=== PATIENT | female | born 1975 | race Caucasian/White ===

== ENCOUNTER 2016-06-09 18:01 | Emergency (ER) | payer MEDICAID ==
[~2016-06-09] VITALS: Ht 152.4 cm; Wt 80.5 kg
[~2016-06-09 18:01] MED LIST: IBUP-1542 PO
[2016-06-09 18:27] VITALS: Ht 152.4 cm; Wt 80.5 kg
[2016-06-09] MEDS ORDERED: NAPROXEN 500 MG TAB PO STA (19:51)
--- NOTE | 2016-06-09 20:37 | RADRPT ---
PROCEDURE: XR Left Foot CLINICAL INDICATION: Contusion TECHNIQUE: AP, oblique, and lateral radiographs were submitted. COMPARISON: None FINDINGS: Osseous structures: appear well mineralized and intact with no fracture or destructive process iden tified. Joint spaces: are well maintained, with no significant spurring, erosion or joint effusion evident. Soft tissues: appear unremarkable. IMPRESSION: Unremarkable left foot. Physician Dylan Date Time Electronically viewed and signed by Physician Dylan on 06/09/2016 20:37 /
--- NOTE | 2016-06-09 20:37 | RADRPT ---
PROCEDURE: XR Left Wrist with Navicular View CLINICAL INDICATION: Contusion TECHNIQUE: AP, lateral, and oblique views as well as a carpal navicular view were submitted. COMPARISON: None FINDINGS: Osseous structures: appear well mineralized and intact with no fracture or destructive process iden tified. Joint spaces: are well maintained with no significant erosions or spurring identified. Soft tissues: appear unremarkable. IMPRESSION: Unremarkable left wrist with navicular view. Physician Dylan Date Time Electronically viewed and signed by Falguni De La Cruz Physician on 06/09/2016 20:36 RH/
--- NOTE | 2016-06-09 20:38 | RADRPT ---
PROCEDURE: XR Left Shoulder CLINICAL INDICATION: Contusion, fall TECHNIQUE: AP internal and external rotation views and a Y-view were submitted. COMPARISON: None FINDINGS: Osseous structures: appear well mineralized and intact with no fracture or destructive process iden tified. Joint spaces: The glenohumeral joint appears unremarkable. The AC joint appears normal. Soft tissues: appear unremarkable. IMPRESSION: Unremarkable left shoulder. Physician Dylan Date Time Electronically viewed and signed by Falguni De La Cruz Physician on 06/09/2016 20:38 /
[2016-06-09] MEDS ORDERED: NAPR-260 PO (20:45)
--- NOTE | 2016-06-09 20:53 | ERD ---
ER Documentation Chief Complaint Date/Time DATE: 06/09/16 TIME: 20:50 Chief Complaint ground level at 3 pm, c/o pain left wrist, left foot, left neck HPI This is a 40-year-old female presenting to the emergency department complaining of left dorsal wrist pain, left dorsal foot pain, left shoulder pain SP large machine falling onto her at work earlier today. Patient rates the pain moderate in severity. She states that she is able to ambulate, she admits to restricted range of motion due to pain. ROS All systems reviewed and are negative except as per history of present illness. Medications Home Meds Active Scripts Naproxen* (Naprosyn*) 500 Mg Tablet, 500 MG PO BID Y for PAIN AND/OR INFLAMMATION, #30 TAB Prov:BRIGIDO BAÑUELOS PA-C 06/09/16 Ibuprofen* (Motrin*) 600 Mg Tab, 600 MG PO Q6H Y for PAIN AND OR ELEVATED TEMP, #30 TAB Prov:MAILE NIELSON MD 03/14/16 Allergies Allergies: Coded Allergies: No Known Drug Allergy (Verified Allergy, Unknown, 06/09/16) PMhx/Soc History of Surgery: No Anesthesia Reaction: No Hx Neurological Disorder: No Hx Respiratory Disorders: No Hx Cardiac Disorders: Yes (CHEST PAIN.) Hx Psychiatric Problems: No Hx Miscellaneous Medical Probl: No Hx Alcohol Use: No Hx Substance Use: No Hx Tobacco Use: No Smoking Status: Never smoker Physical Exam Vitals Vital Signs Date Time Temp Pulse Resp B/P Pulse Ox O2 Delivery O2 Flow Rate FiO2 06/09/16 18:27 97.9 72 20 141/63 100 Physical Exam General: WD/WN, in no apparent distress, non-toxic appearing HENT: NC/AT Eyes: Conjunctiva normal Neck: Supple Pulm: Clear to auscultation, normal labored breathing; no wheezing/rales/ rhonchi heard CV: Good capillary refill GI: Non-distended, no guarding Back: No masses Ext: Tenderness to palpation over the left shoulder, tenderness to palpation over the left dorsal wrist, positive snuffbox tenderness, tender to palpation of the left dorsal foot, patient had full passive range of motion of all extremities. There was no swelling noted Neuro: Moves on all fours Skin: intact Psych: Normal mood Results 24 hrs Current Medications Medications (Trade) Dose Ordered Sig/Viridiana Route PRN Reason Start Time Stop Time Status Last Admin Dose Admin Naproxen (Naprosyn) 500 mg ONCE STAT PO 06/09/16 19:51 06/09/16 19:55 DC 06/09/16 20:33 Procedures/MDM This is a 40-year-old female presenting to the emergency department complaining of left wrist pain, left dorsal foot pain, and left shoulder pain status post a large machine falling on top of her. This is likely due to a contusion and sprain. I have a low suspicion for fracture or dislocation however due to patient having some mild scaphoid snuffbox tenderness patient was placed in a thumb spica splint, I discussed with patient to follow-up with her orthopedist in the next couple days for further evaluation management. Patient was neurovascular intact pre-and post treatment. Patient was given naproxen in the ED and a prescription for outpatient. Patient has stable vital signs and neurovascular intact for discharge, precautions were given to return to the ED for any worsening symptoms. Patient understands and agrees with plan Departure Diagnosis: Primary Impression: Wrist injury Encounter type: initial encounter Laterality: left Qualified Code: S69.92XA - Wrist injury, left, initial encounter Additional Impression: Contusion Encounter type: initial encounter Contusion area: shoulder Laterality: left Qualified Code: S40.012A - Contusion of left shoulder, initial encounter Condition: Stable Patient Instructions: Contusion, Soft Tissue, Contusion, Hand, Contusion, Upper Extremity, Fracture, Navicular (Wrist), Suspected Referrals: [facility] () Usted se hooks hecho un examen mdico de control que le indica que no est en vandana condicin que requiera tratamiento urgente en el Departamento de Emergencia. Un estudio ms profundo y el tratamiento de rodriguez condicin pueden esperar sin ningn riesgo hasta que usted sea atendida/o en el consultorio de rodriguez mdico o vandana cl hesham. Es responsabilidad suya arreglar vandana joe para el seguimiento del latricia. MANEJO DE CONDICIONES NO URGENTES EN EL FUTURO 1) Si usted tiene un mdico de atencin primaria: Usted debera llamar a rodriguez mdico de atencin primaria antes de venir al departamento de emergencia. Despus de las horas de consultorio, rodriguez doctor o rodriguez asociado/a est disponible por telfono. El mdico o enfermero de jo-ann en el servicio telefnico puede asesorarle por roberto medio para atender el problema, o latricia contrario se puede programar vandana joe. 2) Si usted no tiene un mdico de atencin primaria: Llame al mdico o condado institucions de referencia que aparece abajo gene las horas de consultorio para hacer vandana joe para que le vean. SI USTED NO PUEDE PAGAR PARA LAVELLE UN MEDICO puede ir a: [facility] [address] [place] [address] [facility] [address] [place] [address] [facility] [address] [place] [address] [facility] [address] [place], [place] [phone] Additional Instructions: Visite a rodriguez mdico maana para un EXAMEN.Regrese a estas instalaciones si no se mejora valentnie esperbamos o valentine le dijimos. Specialist:Usted tiene vandana condicin mdica que requiere que brian a un especialista dentro de los prximos 1-2 schulz.POR FAVOR,CON RODRIGUEZ SEGUIMIENTO DE PRIMARIA PHSICIAN refferal. SI USTED NO TIENE UN MDICO GENERAL Y / O USTED NO PUEDE PAGAR lavelle a un mdico,los siguientes barlow RECURSOS sido suministrado a usted. ES RODRIGUEZ RESPONSABILIDAD PARA SER VISTOS POR EL ESPECIALISTA: Elkin toda la medicina alexandre y valentine se le indic. Regrese a estas instalaciones si no se mejora valentine esperbamos o valentine le dijimos. BRIGIDO BAÑUELOS PA-C Jun 09, 2016 20:53
== END 2016-06-09 21:18 | disposition home or self-care (01) ==
LOC: FTE 18:01
DX: S69.92XA Unspecified injury of left wrist, hand and finger(s), initial encounter (principal); S40.012A Contusion of left shoulder, initial encounter; W20.8XXA Other cause of strike by thrown, projected or falling object, initial encounter; Y92.9 Unspecified place or not applicable
CPT/HCPCS: 29125; 73030; 73110; 73630; Z7610

== ENCOUNTER 2016-10-14 09:25 | Emergency (ER) | payer MEDICAID ==
[~2016-10-14] VITALS: Wt 79.5 kg
[~2016-10-14 09:25] MED LIST changes: +NAPR-260 PO
[2016-10-14] MEDS ORDERED: ONDANSETRON (ODT) 4 MG TAB ODT STA (09:55)
[2016-10-14] MEDS ORDERED: LIDOCAINE/MYLANTA 40 ML BTL PO STA (10:07)
[2016-10-14] MEDS ORDERED: METOCLOPRAMIDE 10 MG INJ IV STA (10:07)
[2016-10-14] MEDS ORDERED: SOD CHLORIDE 0.9% 1,000 ML IV STA (10:07)
[2016-10-14] MEDS ORDERED: FAMOTIDINE 20 MG INJ IV STA (10:07)
[2016-10-14 10:30] LABS: ADD SCAN DIFF NO
[2016-10-14 10:33] LABS: BASOPHIL # 0.1 10^3/ul (0.0-0.1); BASOPHILS % 0.9 % (0.0-2.0); EOSINOPHILS # 0.2 10^3/ul (0.0-0.5); EOSINOPHILS % 1.7 % (0.0-7.0); HEMOGLOBIN 13.4 g/dl (12.0-16.0); LYMPHOCYTES # 3.6 10^3/ul (0.8-2.9); LYMPHOCYTES % 36.7 % (15.0-51.0); MEAN CORPUSCULAR HEMOGLOBIN 30.3 pg (29.0-33.0); MEAN CORPUSCULAR HGB CONC 34.4 g/dl (32.0-37.0); MEAN CORPUSCULAR VOLUME 88.2 fl (82.0-101.0); MONOCYTE # 0.5 10^3/ul (0.3-0.9); NEUTROPHIL # 5.4 10^3/ul (1.6-7.5); NEUTROPHILS % 55.5 % (39.0-77.0); PLATELET COUNT 311 10^3/UL (140-415); RED BLOOD COUNT 4.42 10^6/ul (4.20-5.40); RED CELL DISTRIBUTION WIDTH 12.5 % (11.5-14.5); WHITE BLOOD COUNT 9.7 10^3/ul (4.8-10.8)
[2016-10-14 10:51] LABS: ANION GAP 14 (8-16)
[2016-10-14 10:59] LABS: ADD UMIC NO; URINE BILIRUBIN (Dip) NEGATIVE (NEGATIVE); URINE BLOOD (Dip) NEGATIVE (NEGATIVE); URINE COLOR LT. YELLOW (YELLOW); URINE GLUCOSE (Dip) NEGATIVE (NEGATIVE); URINE KETONES (Dip) NEGATIVE (NEGATIVE); URINE LEUKOCYTE ESTERASE (Dip) NEGATIVE (NEGATIVE); URINE NITRITE (Dip) NEGATIVE (NEGATIVE); URINE TOTAL PROTEIN (Dip) NEGATIVE (NEGATIVE); URINE UROBILINOGEN (Dip) 0.2 E.U./dL (0.1-1.0)
[2016-10-14 10:59] LABS: ALANINE AMINOTRANSFERASE 43 IU/L (13-69); ALBUMIN/GLOBULIN RATIO 1.21; ALKALINE PHOSPHATASE 117 IU/L (42-121); ASPARTATE AMINO TRANSFERASE 24 IU/L (15-46); BILIRUBIN,INDIRECT 0.3 mg/dl (0-1.1); BILIRUBIN,TOTAL 0.3 mg/dl (0.2-1.3); BLOOD UREA NITROGEN 13 mg/dl (7-20); CALCIUM 9.2 mg/dl (8.4-10.2); CARBON DIOXIDE 26 mmol/L (21-31); CHLORIDE 102 mmol/L (97-110); CREATININE 0.52 mg/dl (0.44-1.00); GLUCOSE 169 mg/dl (70-220); TOTAL PROTEIN 7.3 g/dl (6.1-8.1)
[2016-10-14 11:00] LABS: POTASSIUM 3.5 mmol/L (3.5-5.1); SODIUM 138 mmol/L (135-144)
--- NOTE | 2016-10-14 11:03 | RADRPT ---
PROCEDURE: Chest Radiograph. CLINICAL INDICATION: Abdominal pain TECHNIQUE: Single frontal chest radiograph. COMPARISON: Chest radiograph 03/14/2016 FINDINGS: The patient is rotated. Heart size is poorly evaluated. The cardiomediastinal silhouette is grossl y within normal limits. No infiltrate or effusion is seen. The bones are intact. IMPRESSION: 1. No evidence of acute cardiopulmonary disease. RPTAT: AA .Semaj Valencia MD, MD Date Time Electronically viewed and signed by .Semaj Valencia MD, on 10/14/2016 11:03 .B/
[2016-10-14 11:19] LABS: TROPONIN-I < 0.012 ng/ml (0.00-0.12)
[2016-10-14] MEDS ORDERED: FAMO-18 PO (11:55)
[2016-10-14] MEDS ORDERED: METO10TA92 PO (11:55)
--- NOTE | 2016-10-14 12:08 | ERD ---
ER Documentation Chief Complaint Date/Time DATE: 10/14/16 TIME: 11:59 Chief Complaint LEFT KNEE PAIN, ALSO REPORTS VOMITING HPI 41-year-old female with no significant past medical history presenting with epigastric pain for 3 days. She started having associated nausea and vomiting since yesterday. Her vomitus is nonbloody and nonbilious. Her pain is constant , aching, nonradiating, 9 out of 10, worse with eating. No history of melena or hematochezia. No dysuria. Denies fevers or chills. She states that she feels tingling all over her body and body aches. No focal weakness or numbness. No headache or vision disturbance. She does endorse taking Motrin daily for the past 3 months for left-sided knee pain. ROS All systems reviewed and are negative except as per history of present illness. Medications Home Meds Active Scripts Metoclopramide* (Reglan*) 10 Mg Tablet, 10 MG PO Q6 Y for NAUSEA AND/OR VOMITING , #10 TAB Prov:BHAVIN SALAZAR MD 10/14/16 Famotidine* (Pepcid*) 20 Mg Tablet, 20 MG PO BID for 14 Days, #30 TAB Prov:BHAVIN SALAZAR MD 10/14/16 Discontinued Scripts Naproxen* (Naprosyn*) 500 Mg Tablet, 500 MG PO BID Y for PAIN AND/OR INFLAMMATION, #30 TAB Prov:BRIGIDO BAÑUELOS PA-C 06/09/16 Ibuprofen* (Motrin*) 600 Mg Tab, 600 MG PO Q6H Y for PAIN AND OR ELEVATED TEMP, #30 TAB Prov:MAILE NIELSON MD 03/14/16 Allergies Allergies: Coded Allergies: No Known Drug Allergy (Verified Allergy, Unknown, 10/14/16) PMhx/Soc History of Surgery: Yes () Anesthesia Reaction: No Hx Neurological Disorder: No Hx Respiratory Disorders: No Hx Cardiac Disorders: No Hx Psychiatric Problems: No Hx Miscellaneous Medical Probl: Yes (migraine) Hx Alcohol Use: No Hx Substance Use: No Hx Tobacco Use: No Smoking Status: Never smoker FmHx Family History: No diabetes Physical Exam Vitals Vital Signs Date Time Temp Pulse Resp B/P Pulse Ox O2 Delivery O2 Flow Rate FiO2 10/14/16 09:27 97.0 81 17 136/76 98 Physical Exam Const: Well-appearing, no distress Head: Atraumatic Eyes: Normal Conjunctiva ENT: Normal External Ears, Nose and Mouth. Neck: Full range of motion. No meningismus. Resp: Clear to auscultation bilaterally Cardio: Regular rate and rhythm, no murmurs. 2+ distal pulses Abd: Soft, epigastric moderate tenderness to palpation, non distended. Negative Eduardo sign normal bowel sounds Skin: No petechiae or rashes Back: No midline or flank tenderness Ext: No cyanosis, or edema. Left knee without any effusion or erythema. Tender to palpation along the joint. Neur: Awake and alert, face is symmetric, cranial nerves intact, strength and sensations intact in all 4 extremities Psych: Normal Mood and Affect Result Diagram: 10/14/16 1020 10/14/16 1020 Results 24 hrs Laboratory Tests Test 10/14/16 10:18 10/14/16 10:20 10/14/16 10:45 Bedside Glucose 140mg/dL White Blood Count 9.710^3/ul Red Blood Count 4.4210^6/ul Hemoglobin 13.4g/dl Hematocrit 39.0% Mean Corpuscular Volume 88.2fl Mean Corpuscular Hemoglobin 30.3pg Mean Corpuscular Hemoglobin Concent 34.4g/dl Red Cell Distribution Width 12.5% Platelet Count 71793^3/UL Mean Platelet Volume 10.0fl Neutrophils % 55.5% Lymphocytes % 36.7% Monocytes % 5.0% Eosinophils % 1.7% Basophils % 0.9% Nucleated Red Blood Cells % 0.0/100WBC Neutrophils # 5.410^3/ul Lymphocytes # 3.610^3/ul Monocytes # 0.510^3/ul Eosinophils # 0.210^3/ul Basophils # 0.110^3/ul Nucleated Red Blood Cells # 0.010^3/ul Sodium Level 138mmol/L Potassium Level 3.5mmol/L Chloride Level 102mmol/L Carbon Dioxide Level 26mmol/L Anion Gap 14 Blood Urea Nitrogen 13mg/dl Creatinine 0.52mg/dl Glucose Level 169mg/dl Calcium Level 9.2mg/dl Total Bilirubin 0.3mg/dl Direct Bilirubin 0.00mg/dl Indirect Bilirubin 0.3mg/dl Aspartate Amino Transf (AST/SGOT) 24IU/L Alanine Aminotransferase (ALT/SGPT) 43IU/L Alkaline Phosphatase 117IU/L Troponin I < 0.012ng/ml Total Protein 7.3g/dl Albumin 4.0g/dl Globulin 3.30g/dl Albumin/Globulin Ratio 1.21 Lipase 105U/L Urine Color LT. YELLOW Urine Clarity CLEAR Urine pH 6.5 Urine Specific [place] 1.010 Urine Ketones NEGATIVE Urine Nitrite NEGATIVE Urine Bilirubin NEGATIVE Urine Urobilinogen 0.2 E.U./dL Urine Leukocyte Esterase NEGATIVE Urine Hemoglobin NEGATIVE Urine Glucose NEGATIVE% Urine Total Protein NEGATIVE Current Medications Medications (Trade) Dose Ordered Sig/Viridiana Route PRN Reason Start Time Stop Time Status Last Admin Dose Admin Ondansetron HCl 8 mg 8 mg ONCE STAT ODT 10/14/16 09:55 10/14/16 09:57 DC 10/14/16 09:58 Sodium Chloride (NS) 1,000 ml @ 1,000 mls/hr Q1H STAT IV 10/14/16 10:07 10/14/16 11:06 DC 10/14/16 10:13 Metoclopramide HCl (Reglan) 10 mg ONCE STAT IV 10/14/16 10:07 10/14/16 10:09 DC 10/14/16 10:13 Famotidine (Pepcid Iv) 20 mg ONCE STAT IV 10/14/16 10:07 10/14/16 10:09 DC 10/14/16 10:13 Miscellaneous Medication (Gi Cocktail (2)) 40 ml ONCE STAT PO 10/14/16 10:07 10/14/16 10:09 DC 10/14/16 10:13 Procedures/MDM EMERGENT LABS AND DIAGNOSTIC STUDIES: Lab Results above were reviewed and interpreted by me. CBC, CMP, lipase, troponin within normal limits. UA normal. negative. 12-lead EKG was interpreted by Anabelle Salazar MD: Normal Sinus Rhythm Normal axis Normal intervals No acute ST or T wave changes suggestive of acute ischemia or STEMI. Radiology Results as interpreted by Radiology below were reviewed by Ryan Salazar MD: Chest x-ray normal Initial Nursing notes reviewed. Previous Medical Records requested via the Electronic Health Record. EMERGENCY DEPARTMENT COURSE / MEDICAL DECISION MAKING: Patient is presenting with complaints of epigastric pain. Differential includes but is not limited to biliary colic, biliary obstruction, acute cholecystitis, pancreatitis, hepatitis, lower lobe pneumonia, gastritis, colitis , cardiac pathology, aortic dissection, ureterolithiasis, pyelonephritis. Labs were ordered to evaluate for above and were unremarkable. Chest Xray ordered to evaluate for pneumonia and was read as normal by radiology. I suspect the patient has gastritis secondary to NSAID use. I have a low suspicion for acute surgical abdomen or biliary etiology. Pepcid, fluids, Reglan and GI cocktail were given with significant improvement in her symptoms. EKG was nonischemic and troponin was negative. I have a low suspicion that this is due to a cardiac etiology. Patient was discharged with instructions to stop NSAID use and I gave her prescription for Pepcid. I asked her to follow-up with her primary care doctor regarding her left knee pain. I advised her to use Tylenol in the meantime. Currently there is no evidence of septic joint or acute fracture dislocation. Patient's blood pressure was elevated (>120/80) but appears stable without evidence of hypertensive emergency or urgency. The patient was counseled about the risks of hypertension and urged to pursue outpatient monitoring and therapy within a week with their primary care physician. Departure Diagnosis: Primary Impression: Epigastric abdominal pain Additional Impressions: Weakness Nausea and vomiting Vomiting type: unspecified Vomiting Intractability: non-intractable Qualified Code: R11.2 - Non-intractable vomiting with nausea, unspecified vomiting type Knee pain Laterality: left Chronicity: chronic Qualified Code: M25.562 - Chronic pain of left knee Condition: Stable Patient Instructions: Nausea and Vomiting-Adult, Epigastric Pain (Uncertain Cause) [facility] Usted se hooks hecho un examen mdico de control que le indica que no est en vandana condicin que requiera tratamiento urgente en el Departamento de Emergencia. Un estudio ms profundo y el tratamiento de villagomez condicin pueden esperar sin ningn riesgo hasta que usted sea atendida/o en el consultorio de villagomez mdico o vandana cl hesham. Es responsabilidad suya arreglar vandana joe para el seguimiento del latricia. MANEJO DE CONDICIONES NO URGENTES EN EL FUTURO 1) Si usted tiene un mdico de atencin primaria: Usted debera llamar a villagomez mdico de atencin primaria antes de venir al departamento de emergencia. Despus de las horas de consultorio, villagomez doctor o villagomez asociado/a est disponible por telfono. El mdico o enfermero de jo-ann en el servicio telefnico puede asesorarle por roberto medio para atender el problema, o latricia contrario se puede programar vandana joe. 2) Si usted no tiene un mdico de atencin primaria: Llame al mdico o clnica de referencia que aparece abajo gene las horas de consultorio para hacer vandana joe para que le vean. CLINICAS: [facility] [phone] [address] [facility] [phone] [address] [facility]. [facility] [phone] [address] [facility]. [facility] [phone] [address] [facility]. [place] [id number] [phone] [facility]. [phone] [address] Additional Instructions: Nela vandana joe con villagomez mdico en los prximos 2 schulz. Deje de lisette Motrin para el dolor porque causa gastritis. Utilice Tylenol en villagomez lugar. Volver a la torri de emergencias para cualquier empeoramiento de los sntomas. EKMEKJIAN,NELLIE R. MD October 14, 2016 12:08
[2016-10-14 12:12] VITALS: RESP 18
== END 2016-10-14 12:12 | disposition home or self-care (01) ==
LOC: E/R 09:25
DX: R10.13 Epigastric pain (principal); R53.1 Weakness; R11.2 Nausea with vomiting, unspecified
CPT/HCPCS: 71010; 80053; 81003; 82962; 83690; 84484; 85025; 93005; J2765; J7030; Z7610; 36415; 96374; 96375

== ENCOUNTER 2017-05-22 14:21 | Inpatient (IN) | END 2017-05-26 12:30 | disposition home or self-care (01) | DRG 440 ==

== ENCOUNTER 2017-07-20 16:17 | Emergency (ER) | END 2017-07-20 17:40 | disposition home or self-care (01) ==

== ENCOUNTER 2017-10-13 16:31 | Emergency (ER) | END 2017-10-13 23:36 | disposition home or self-care (01) ==

== ENCOUNTER 2017-12-18 16:11 | Emergency (ER) | END 2017-12-18 20:49 | disposition home or self-care (01) ==

== ENCOUNTER 2018-02-14 00:56 | Emergency (ER) | END 2018-02-14 03:32 | disposition home or self-care (01) ==

== ENCOUNTER 2018-03-13 09:48 | Emergency (ER) | END 2018-03-13 14:11 | disposition home or self-care (01) ==

== ENCOUNTER 2018-08-08 12:03 | Emergency (ER) | payer OTHER, MEDICAID ==
[~2018-08-08] VITALS: Ht 144.8 cm; Wt 73.0 kg
[~2018-08-08 12:03] MED LIST changes: +CIPR500T4 PO; +CYCL10TA7 PO; +FIORICET PO; +FLUC150T PO; +HYDR-3980 PO; +HYDR-4011 PO; +IBUP-1544 PO; +LANT3I SC; +METF-849 PO; +METR500T PO; -NAPR-260 PO; +NOVO3I SC; +ONDA4TAB14 PO
[2018-08-08 12:51] VITALS: BP 152/65; PULSE 76; RESP 20; Ht 144.8 cm; Wt 73.0 kg
[2018-08-08] MEDS ORDERED: KETOROLAC 30 MG INJ IM STA (13:42)
[2018-08-08] MEDS ORDERED: TRAM50TA2 PO (14:53)
[2018-08-08] MEDS ORDERED: NAPR-985 PO (14:53)
--- NOTE | 2018-08-08 20:37 | ERD ---
ER Documentation Chief Complaint Chief Complaint RIGHT CLAVICLE/SHOULDER PAIN, NO DEFORMITY, +SWELLING, - FALLS-TODAY HPI 43-year-old female with a medical history of diabetes with 3-hour complaint of right clavicle shoulder pain. She denies any falls or recent injury. Woke up this morning with sharp pain that extends from the right shoulder to elbow. Also with numbness from right shoulder to elbow but denies numbness to forearm or hand. Pain worse with movement of her right shoulder. She otherwise denies chest pain, shortness of breath dyspnea, nausea vomiting, abdominal pain, urinary symptoms. ROS All systems reviewed and are negative except as per history of present illness. Medications Home Meds Active Scripts Naproxen* (Naprosyn*) 500 Mg Tablet, 500 MG PO BID PRN for PAIN AND/OR INFLAMMATION, #30 TAB Prov:DARCIE MONROE PA-C 08/08/18 Tramadol HCl (Tramadol HCl) 50 Mg Tablet, 50 MG PO Q6 PRN for PAIN, #20 TAB Prov:DARCIE MONROE PA-C 08/08/18 Fluconazole* (Diflucan*) 150 Mg Tablet, 150 MG PO ONCE, #1 TAB Prov:DEB ORTIZC 03/13/18 Acetamin/Butalbital/Caffeine* (Fioricet*) [id number] Tab, 1 TAB PO Q6H PRN for PAIN, #20 TAB Prov:DEB ORTIZC 03/13/18 Metformin* (Glucophage*) 500 Mg Tab, 500 MG PO DAILY, #20 TAB Prov:DEB ORTIZC 03/13/18 Hydrocodone/Acetaminophen (Breeding 10-325 Tablet) 1 Each Tablet, 1 TAB PO Q6H PRN for PAIN, #20 TAB Prov:JAVIER INIGUEZ 02/14/18 Cyclobenzaprine Hcl* (Cyclobenzaprine Hcl*) 10 Mg Tablet, 10 MG PO TID, #15 TAB Prov:JAVIER INIGUEZ 02/14/18 Ibuprofen* (Motrin*) 600 Mg Tab, 600 MG PO Q6H PRN for PAIN AND OR ELEVATED TEMP, #30 TAB Prov:JAVIER INIGUEZ 02/14/18 Hydrocodone/Acetaminophen (Breeding 5-325 Tablet) 1 Each Tablet, 1 TAB PO Q6H PRN for PAIN, #7 TAB Prov:JAVIER HOLDEN PA-C 12/18/17 Ondansetron (Ondansetron Odt) 4 Mg Tab.rapdis, 4 MG PO Q6H PRN for NAUSEA AND/OR VOMITING, #10 TAB Prov:JAVIER HOLDEN PA-C 12/18/17 Ciprofloxacin Hcl* (Ciprofloxacin Hcl*) 500 Mg Tablet, 500 MG PO BID for 7 Days, #14 TAB Prov:BRANDO CHAU MD 10/13/17 Metronidazole* (Flagyl*) 500 Mg Tablet, 500 MG PO BID for 7 Days, TAB Prov:BRANDO CHAU MD 10/13/17 Ibuprofen* (Ibuprofen*) 800 Mg Tablet, 800 MG PO Q8, #20 TAB Prov:BRANDO CHAU MD 10/13/17 Insulin Glargine* (Lantus*) 100 Unit/Ml Soln, 20 UNIT SC DAILY@08 for 30 Days Prov:HOLGER WILCOX 05/25/17 Insulin Aspart* (Novolog Insulin Pen*) 100 Unit/Ml Soln, 7 UNIT SC WITH MEALS for 30 Days Prov:HOLGER WILCOX 05/25/17 Allergies Allergies: Coded Allergies: No Known Drug Allergy (Verified Allergy, Unknown, 10/13/17) PMhx/Soc History of Surgery: Yes (CESARIAN SECTION) Anesthesia Reaction: No Hx Neurological Disorder: No Hx Respiratory Disorders: No Hx Cardiac Disorders: No Hx Psychiatric Problems: No Hx Miscellaneous Medical Probl: Yes (DM) Hx Alcohol Use: No Hx Substance Use: No Hx Tobacco Use: No FmHx Family History: diabetes Physical Exam Vitals Vital Signs Date Temp Pulse Resp B/P (MAP) Pulse Ox O2 O2 Flow FiO2 Time Delivery Rate 08/08/18 97.7 76 20 152/65 100 12:51 (94) Physical Exam I have reviewed the triage vital signs. 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 No rashes Neuro: Alert, scrap hooker II-XII grossly intact. Sensation and motor function of extremities grossly intact. Psych: Appropriate mood and affect. Results 24 hrs Laboratory Tests Test 08/08/18 14:00 POC Beta HCG, Qualitative NEGATIVE Current Medications Medications Dose Sig/Viridiana Start Time Status Last (Trade) Ordered Route PRN Stop Time Admin Dose Reason Admin Ketorolac 30 mg ONCE STAT 08/08/18 DC 08/08/18 Tromethamine IM 13:42 14:16 (Toradol) 08/08/18 13:44 Procedures/MDM 43-year-old female with past medical history of diabetes presents with right shoulder and arm pain and numbness. Unfortunately, patient left without ob taining results of her imaging. Several attempts made to locate patient to no avail. ED course: Xray of R shoulder without acute findings. Departure Diagnosis: Primary Impression: Shoulder pain Condition: Stable Patient Instructions: Shoulder Pain (Uncertain Cause) Additional Instructions: Call your primary care doctor TOMORROW for an appointment during the next 2-3 days.See the doctor sooner or return here if your condition worsens before your appointment time. DARCIE MONROE PA-C Aug 08, 2018 20:37
== END 2018-08-08 16:37 | disposition left against medical advice (07) ==
LOC: FTE 12:03
DX: M25.511 Pain in right shoulder (principal); E11.9 Type 2 diabetes mellitus without complications; Z79.4 Long term (current) use of insulin
CPT/HCPCS: 73030; 81025; 93005; 96372; 99284; J1885

== ENCOUNTER 2018-08-30 09:37 | Emergency (ER) | payer OTHER, MEDICAID ==
[~2018-08-30] VITALS: Ht 165.1 cm; Wt 70.9 kg
[~2018-08-30 09:37] MED LIST changes: +NAPR-985 PO; +TRAM50TA2 PO
[2018-08-30 09:51] VITALS: BP 137/83; PULSE 70; RESP 20; Ht 165.1 cm; Wt 70.9 kg
[2018-08-30] MEDS ORDERED: IBUP-1542 PO (13:29)
--- NOTE | 2018-08-30 13:34 | ERD ---
ER Documentation Chief Complaint Chief Complaint Complains of pelvic pain x 3 days HPI 43-year-old female presents with sensation of lower abdominal bloating and pelvic discomfort. She denies any known . She denies vaginal discharge, bleeding, dysuria, fevers, vomiting. Last menstrual period 10 weeks ago. She has a history of IUD. ROS All systems reviewed and are negative except as per history of present illness. Medications Home Meds Active Scripts Ibuprofen* (Motrin*) 600 Mg Tab, 600 MG PO Q6, #15 TAB Prov:MANDO REN MD 08/30/18 Naproxen* (Naprosyn*) 500 Mg Tablet, 500 MG PO BID PRN for PAIN AND/OR INFLAMMATION, #30 TAB Prov:DARCIE MONROE PA-C 08/08/18 Tramadol HCl (Tramadol HCl) 50 Mg Tablet, 50 MG PO Q6 PRN for PAIN, #20 TAB Prov:DARCIE MONROE PA-C 08/08/18 Fluconazole* (Diflucan*) 150 Mg Tablet, 150 MG PO ONCE, #1 TAB Prov:DEB ORTIZ PA-C 03/13/18 Acetamin/Butalbital/Caffeine* (Fioricet*) [id number] Tab, 1 TAB PO Q6H PRN for PAIN, #20 TAB Prov:DEB ORTIZ PA-C 03/13/18 Metformin* (Glucophage*) 500 Mg Tab, 500 MG PO DAILY, #20 TAB Prov:DEB ORTIZC 03/13/18 Hydrocodone/Acetaminophen ([place] 10-325 Tablet) 1 Each Tablet, 1 TAB PO Q6H PRN for PAIN, #20 TAB Prov:JAVIER INIGUEZ 02/14/18 Cyclobenzaprine Hcl* (Cyclobenzaprine Hcl*) 10 Mg Tablet, 10 MG PO TID, #15 TAB Prov:JAVIER INIGUEZ. 02/14/18 Ibuprofen* (Motrin*) 600 Mg Tab, 600 MG PO Q6H PRN for PAIN AND OR ELEVATED TEMP, #30 TAB Prov:JAVIER INIGUEZ. 02/14/18 Hydrocodone/Acetaminophen ([place] 5-325 Tablet) 1 Each Tablet, 1 TAB PO Q6H PRN for PAIN, #7 TAB Prov:JAVIER HOLDEN PA-C 12/18/17 Ondansetron (Ondansetron Odt) 4 Mg Tab.rapdis, 4 MG PO Q6H PRN for NAUSEA AND/OR VOMITING, #10 TAB Prov:JAVIER HOLDEN PA-C 12/18/17 Ciprofloxacin Hcl* (Ciprofloxacin Hcl*) 500 Mg Tablet, 500 MG PO BID for 7 Days, #14 TAB Prov:BRANDO CHAU MD 10/13/17 Metronidazole* (Flagyl*) 500 Mg Tablet, 500 MG PO BID for 7 Days, TAB Prov:BRANDO CHAU MD 10/13/17 Ibuprofen* (Ibuprofen*) 800 Mg Tablet, 800 MG PO Q8, #20 TAB Prov:BRANDO CHAU MD 10/13/17 Insulin Glargine* (Lantus*) 100 Unit/Ml Soln, 20 UNIT SC DAILY@08 for 30 Days Prov:HOLGER WILCOX 05/25/17 Insulin Aspart* (Novolog Insulin Pen*) 100 Unit/Ml Soln, 7 UNIT SC WITH MEALS for 30 Days Prov:HOLGER WILCOX 05/25/17 Allergies Allergies: Coded Allergies: No Known Drug Allergy (Verified Allergy, Unknown, 10/13/17) PMhx/Soc History of Surgery: Yes (CESARIAN SECTION) Anesthesia Reaction: No Hx Neurological Disorder: No Hx Respiratory Disorders: No Hx Cardiac Disorders: No Hx Psychiatric Problems: No Hx Miscellaneous Medical Probl: Yes (DM) Hx Alcohol Use: No Hx Substance Use: No Hx Tobacco Use: No Smoking Status: Never smoker FmHx Family History: No diabetes, No coronary disease, No other Physical Exam Vitals Vital Signs Date Temp Pulse Resp B/P (MAP) Pulse Ox O2 O2 Flow FiO2 Time Delivery Rate 08/30/18 98.5 70 20 137/83 100 09:51 (101) Physical Exam Const: No acute distress Head: Atraumatic Eyes: Normal Conjunctiva ENT: Normal External Ears, Nose and Mouth. Neck: Full range of motion. No meningismus. Resp: Clear to auscultation bilaterally Cardio: Regular rate and rhythm, no murmurs Abd: Soft, minimal lower abdominal tenderness without masses. Nontender McBurney's point no Eduardo sign. Non distended. Normal bowel sounds. A mbulatory without peritoneal signs. Skin: No petechiae or rashes Back: No midline or flank tenderness Ext: No cyanosis, or edema Neur: Awake and alert Psych: Normal Mood and Affect Results 24 hrs Laboratory Tests Test 08/30/18 11:40 Urine Color YELLOW Urine Clarity CLEAR Urine pH 6.0 Urine Specific [place] 1.026 Urine Ketones NEGATIVE mg/dL Urine Nitrite NEGATIVE mg/dL Urine Bilirubin NEGATIVE mg/dL Urine Urobilinogen 1+ mg/dL Urine Leukocyte Esterase NEGATIVE Lul/ul Urine Hemoglobin NEGATIVE mg/dL Urine Glucose 3+ mg/dL Urine Total Protein NEGATIVE mg/dl POC Beta HCG, Qualitative NEGATIVE Procedures/MDM Ultrasound shows IUD that additional acute abnormalities. No evidence of tubo- ovarian abscess, masses, signs of torsion. Urine shows no acute findings of infection or significant abnormalities. HCG negative. Patient presents with lower abdominal pain of uncertain etiology. Current signs or symptoms do not suggest appendicitis, torsion, tubo-ovarian abscess, surgical abdomen. Urine was sent for gonorrhea chlamydia. Will treat with ibuprofen, further observation at home and return precautions. The patient was stable with no new complaints during the ER course. Clinically, there is no current evidence to suggest meningitis, sepsis, acute abdomen, pneumonia, stroke, acute coronary syndrome, pulmonary embolism, aortic dissection or any other emergent condition appearing to require further evaluation or hospitalization. Patient counseled regarding my diagnostic impression and care plan. Prior to discharge all questions answered. Pt agrees with treatment plan and understands strict return precautions. Pt is instructed to follow up with primary care provider within 24- 48 hours. Precautionary instructions provided including instructions to return to the ER if not improving or for any worsening or changing symptoms or concerns. Departure Diagnosis: Primary Impression: Acute pain in female pelvis Condition: Stable Patient Instructions: Pelvic Pain, Unknown Cause Referrals: DOCTOR,NOT ON STAFF (PCP) Additional Instructions: examines para infecciones va a regresa 1 semana. ultrasonido normal. Cheque otro vez con villagomez doctor primario en el proximo mathias or regresa para mas o nueva simptomas. MANDO REN MD Aug 30, 2018 13:34
== END 2018-08-30 14:06 | disposition home or self-care (01) ==
LOC: FTE 09:37
DX: R10.2 Pelvic and perineal pain (principal); E11.9 Type 2 diabetes mellitus without complications
CPT/HCPCS: 76856; 81003; 81025; 87591

== ENCOUNTER 2018-11-11 07:50 | Emergency (ER) | payer OTHER, MEDICAID ==
[~2018-11-11] VITALS: Ht 147.3 cm; Wt 68.1 kg
[2018-11-11 07:51] VITALS: Ht 147.3 cm; Wt 68.1 kg
[2018-11-11] MEDS ORDERED: IBUPROFEN 600 MG TAB PO ONE (08:30)
[2018-11-11] MEDS ORDERED: OXYCODONE/ACETAMINOPHEN (5/325) TAB PO ONE (08:30)
[2018-11-11] MEDS ORDERED: SOD CHLORIDE 0.9% 1,000 ML IV STA (09:34)
[2018-11-11] MEDS ORDERED: SOD CHLORIDE 0.9% 100 ML ONE (10:14)
[2018-11-11] MEDS ORDERED: IODIXANOL LOCM 100 ML BTL ONE (10:14)
--- NOTE | 2018-11-11 11:33 | ERD ---
ER Documentation Chief Complaint Chief Complaint pelvic pain/urine retention x 1 day "may have tampon stuck in there" HPI 43-year-old female presents with complaint of vaginal pain for the past day. States that she might have a tampon stuck in her vagina. Denies any fevers, chills, nausea, vomiting, diarrhea, dysuria, hematuria, flank pain. ROS All systems reviewed and are negative except as per history of present illness. Medications Home Meds Active Scripts Hydrocodone/Acetaminophen ([place] 5-325 Tablet) 1 Each Tablet, 1 TAB PO Q6H PRN for PAIN, #10 TAB Prov:JAVIER GUILLEN 11/11/18 Doxycycline Hyclate* (Doxycycline Hyclate*) 100 Mg Tablet.dr, 100 MG PO BID for 14 Days, TAB Prov:JAVIER GUILLEN 11/11/18 Cephalexin* (Keflex*) 500 Mg Capsule, 500 MG PO BID for 7 Days, CAP Prov:JAVIER GUILLEN 11/11/18 Ibuprofen* (Motrin*) 600 Mg Tab, 600 MG PO Q6, #15 TAB Prov:MANDO REN MD 08/30/18 Naproxen* (Naprosyn*) 500 Mg Tablet, 500 MG PO BID PRN for PAIN AND/OR INFLAMMAT ION, #30 TAB Prov:DARCIE MONROE PA-C 08/08/18 Tramadol HCl (Tramadol HCl) 50 Mg Tablet, 50 MG PO Q6 PRN for PAIN, #20 TAB Prov:DARCIE MONROE PA-C 08/08/18 Fluconazole* (Diflucan*) 150 Mg Tablet, 150 MG PO ONCE, #1 TAB Prov:DEB ORTIZC 03/13/18 Acetamin/Butalbital/Caffeine* (Fioricet*) [id number] Tab, 1 TAB PO Q6H PRN for PAIN, #20 TAB Prov:DEB ORTIZC 03/13/18 Metformin* (Glucophage*) 500 Mg Tab, 500 MG PO DAILY, #20 TAB Prov:DEB ORTIZC 03/13/18 Hydrocodone/Acetaminophen ([place] 10-325 Tablet) 1 Each Tablet, 1 TAB PO Q6H PRN for PAIN, #20 TAB Prov:GEETHAJAVIER Ryan 02/14/18 Cyclobenzaprine Hcl* (Cyclobenzaprine Hcl*) 10 Mg Tablet, 10 MG PO TID, #15 TAB Prov:JAVIER INIGUEZ. 02/14/18 Ibuprofen* (Motrin*) 600 Mg Tab, 600 MG PO Q6H PRN for PAIN AND OR ELEVATED TEMP, #30 TAB Prov:GABZENAJAVIER Camila. 02/14/18 Hydrocodone/Acetaminophen ([place] 5-325 Tablet) 1 Each Tablet, 1 TAB PO Q6H PRN for PAIN, #7 TAB Prov:JAVIER HOLDEN PA-C 12/18/17 Ondansetron (Ondansetron Odt) 4 Mg Tab.rapdis, 4 MG PO Q6H PRN for NAUSEA AND/OR VOMITING, #10 TAB Prov:JAVIER HOLDEN PA-C 12/18/17 Ciprofloxacin Hcl* (Ciprofloxacin Hcl*) 500 Mg Tablet, 500 MG PO BID for 7 Days, #14 TAB Prov:BRANDO CHAU MD 10/13/17 Metronidazole* (Flagyl*) 500 Mg Tablet, 500 MG PO BID for 7 Days, TAB Prov:BRANDO CHAU MD 10/13/17 Ibuprofen* (Ibuprofen*) 800 Mg Tablet, 800 MG PO Q8, #20 TAB Prov:BRANDO CHAU MD 10/13/17 Insulin Glargine* (Lantus*) 100 Unit/Ml Soln, 20 UNIT SC DAILY@08 for 30 Days Prov:HOLGER WILCOX NP 05/25/17 Insulin Aspart* (Novolog Insulin Pen*) 100 Unit/Ml Soln, 7 UNIT SC WITH MEALS for 30 Days Prov:HOLGER WILCOX NP 05/25/17 Allergies Allergies: Coded Allergies: No Known Drug Allergy (Verified Allergy, Unknown, 10/13/17) PMhx/Soc History of Surgery: Yes (CESARIAN SECTION) Anesthesia Reaction: No Hx Neurological Disorder: No Hx Respiratory Disorders: No Hx Cardiac Disorders: No Hx Psychiatric Problems: No Hx Miscellaneous Medical Probl: Yes (DM) Hx Alcohol Use: No Hx Substance Use: No Hx Tobacco Use: No Smoking Status: Never smoker FmHx Family History: No diabetes, No coronary disease, No other Physical Exam Vitals Vital Signs Date Temp Pulse Resp B/P (MAP) Pulse Ox O2 O2 Flow FiO2 Time Delivery Rate 11/11/18 97.7 58 18 132/71 98 Room Air 12:11 (91) 11/11/18 97.6 95 20 128/74 98 07:51 (92) Physical Exam Const: No acute distress Head: Atraumatic Eyes: Normal Conjunctiva ENT: Normal External Ears, Nose and Mouth. Neck: Full range of motion. No meningismus. Resp: Clear to auscultation bilaterally Cardio: Regular rate and rhythm, no murmurs Abd: Tenderness to palpation in the pelvic area. 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 Abdomen: Nontender External Genitalia: Normal Skin Speculum: Normal vaginal mucosa, normal cervical discharge Bimanual: No adnexal masses or tenderness, positive CMT Result Diagram: 11/11/1846 11/11/18 0946 Results 24 hrs Laboratory Tests Test 11/11/18 08:35 11/11/18 08:40 11/11/18 09:46 Urine Color YELLOW Urine Clarity CLOUDY Urine pH 6.0 Urine Specific [place] 1.042 Urine Ketones NEGATIVE mg/dL Urine Nitrite NEGATIVE mg/dL Urine Bilirubin NEGATIVE mg/dL Urine Urobilinogen NEGATIVE mg/dL Urine Leukocyte Esterase 2+ Lul/ul Urine Microscopic RBC 122 /HPF Urine Microscopic WBC 146 /HPF Urine Squamous Epithelial Cells FEW /HPF Urine Bacteria MODERATE /HPF Urine Mucus FEW /HPF Urine Hemoglobin 2+ mg/dL Urine Glucose 3+ mg/dL Urine Total Protein 1+ mg/dl POC Beta HCG, Qualitative NEGATIVE White Blood Count 8.7 10^3/ul Red Blood Count 4.43 10^6/ul Hemoglobin 13.1 g/dl Hematocrit 39.9 % Mean Corpuscular Volume 90.1 fl Mean Corpuscular Hemoglobin 29.6 pg Mean Corpuscular 32.8 g/dl Hemoglobin Concent Red Cell Distribution Width 13.4 % Platelet Count 286 10^3/UL Mean Platelet Volume 9.7 fl Immature Granulocytes % 0.200 % Neutrophils % 63.1 % Lymphocytes % 26.7 % Monocytes % 7.7 % Eosinophils % 1.6 % Basophils % 0.7 % Nucleated Red Blood Cells % 0.0 /100WBC Immature Granulocytes # 0.020 10^3/ul Neutrophils # 5.5 10^3/ul Lymphocytes # 2.3 10^3/ul Monocytes # 0.7 10^3/ul Eosinophils # 0.1 10^3/ul Basophils # 0.1 10^3/ul Nucleated Red Blood Cells # 0.0 10^3/ul Sodium Level 136 mmol/L Potassium Level 4.3 mmol/L Chloride Level 102 mmol/L Carbon Dioxide Level 28 mmol/L Anion Gap 6 Blood Urea Nitrogen 11 mg/dl Creatinine 0.43 mg/dl Est Glomerular Filtrat > 60 mL/min Rate mL/min Glucose Level 302 mg/dl Calcium Level 8.8 mg/dl Total Bilirubin 0.5 mg/dl Direct Bilirubin 0.00 mg/dl Indirect Bilirubin 0.5 mg/dl Aspartate Amino 45 IU/L Transf (AST/SGOT) Alanine 68 IU/L Aminotransferase (ALT/SGPT) Alkaline Phosphatase 153 IU/L Total Protein 7.0 g/dl Albumin 3.7 g/dl Globulin 3.30 g/dl Albumin/Globulin Ratio 1.12 Lipase 193 U/L Current Medications Medications Dose Sig/Viridiana Start Time Status Last (Trade) Ordered Route PRN Stop Time Admin Dose Reason Admin Oxycodone/ 1 tab ONCE ONCE 11/11/18 DC 11/11/18 Acetaminophen PO 08:30 08:40 (Percocet 11/11/18 08:31 (5/ 325)) Ibuprofen 600 mg ONCE ONCE 11/11/18 DC 11/11/18 (Motrin) PO 08:30 08:40 11/11/18 08:31 Sodium 1,000 ml @ Q1H STAT 11/11/18 DC 11/11/18 Chloride 1,000 mls/hr IV 09:34 09:54 11/11/18 10:33 Iodixanol 100 ml STK-MED 11/11/18 DC 11/11/18 (Visipaque ONCE .ROUTE 10:14 10:30 Locm) 11/11/18 10:15 Sodium 100 ml @ ud STK-MED 11/11/18 DC 11/11/18 Chloride ONCE .ROUTE 10:14 10:30 11/11/18 10:15 Ceftriaxone 50 ml @ ONCE ONCE 11/11/18 DC 11/11/18 Sodium 100 mls/hr IVPB 12:30 12:07 11/11/18 12:33 Procedures/MDM MDM: Ultrasound results within normal limits, and despite patient's concern that a tampon got stuck in her vagina there was none visualized on pelvic exam. However there was cervical motion tenderness raising my suspicion for possible PID. Patient was treated with ceftriaxone as well as course of doxycycline. In addition patient's UA was positive for UTI. Patient treated with course of Keflex. I have low suspicion for ectopic , ovarian torsion, tubo- ovarian abscess, uterine prolapse, ovarian cancer, uterine cancer, nephrolithiasis, pyelonephritis, appendicitis, diverticulitis, bowel obstruction, perirectal abscess. In addition, I discussed with patient that her glucose was high so she would need to possibly get her medication adjusted by her primary care provider. This time I have low suspicion for DKA, HHS, dehydration, cerebral edema, or any other emergent condition. At this time, patient is stable for discharge and outpatient management. I have instructed the patient to follow-up with his/her primary care physician in 1-2 days. I have discussed with the patient the possibility of needing to see a specialist for further workup and imaging studies if symptoms persist. I have instructed the patient to promptly return to the ER for any new or worsening symptoms including but not limited to increased pain, fever, nausea, vomiting, weakness or LOC. The patient and/or family expressed understanding of and agreement with this plan. All questions were answered. Home care instructions were provided. Communication with patient both during the exam and instructions for discharge were performed with using a system safety engineer . Patient gave verbal confirmation to the practitioner, through the system safety engineer, that they understood everythign that was being said to them. DISCLAIMER: Inadvertent spelling and grammatical errors are likely due to EHR/dictation software use and do not reflect on the overall quality of patient care. Also, please note that the electronic time recorded on this note does not necessarily reflect the actual time of the patient encounter. Departure Diagnosis: Primary Impression: Acute pain in female pelvis Condition: Stable JAVIER GUILLEN Nov 11, 2018 11:33
[2018-11-11] MEDS ORDERED: HYDR-4011 PO (12:02)
[2018-11-11] MEDS ORDERED: DOXY100T20 PO (12:02)
[2018-11-11] MEDS ORDERED: CEPH-443 PO (12:02)
[2018-11-11 12:11] VITALS: BP 132/71; PULSE 58; RESP 18
[2018-11-11] MEDS ORDERED: CEFTRIAXONE 1 GM/50 ML (PMX) 50 ML IVPB ONE (12:30)
== END 2018-11-11 12:33 | disposition home or self-care (01) ==
LOC: FTE 07:50
DX: R10.2 Pelvic and perineal pain (principal)
CPT/HCPCS: 36415; 74177; 76830; 76856; 80053; 81001; 81025; 83690; 85025; 87210; 87591; 96374; 99285; J0696; J7030; Q9967